=== PATIENT | female | born 1995 | race Caucasian/White ===

== ENCOUNTER 2018-11-28 18:33 | Emergency (ER) | payer BC ==
[2018-11-28 19:20] VITALS: BP 121/62
--- NOTE | 2018-11-28 19:37 | ED ---
Throat Pain/Nasal Congestion - HPI Summary HPI Summary: 23 yr old female with sinus congestion, post nasal drip, sinus pain, coughing. Onset of symptoms 5 days ago. No SOB. No fever. She initially thought this was a cold but it has settled into her face in frontal area with pain. No other complaints. She has had prior sinusitis. - History of Current Complaint Chief Complaint: UCRespiratory Time Seen by Provider: 11/28/18 19:25 - Allergies/Home Medications Home Medications: Home Medications BuPROPion XL* [Bupropion XL*] 300 mg PO DAILY 11/28/18 [History Confirmed ] Norethindrone-E.estradiol-Iron [Junel Fe 1 mg-20 Mcg Tablet] 1 each PO DAILY [History Confirmed 11/28/18] PMH/Surg Hx/FS Hx/Imm Hx EENT History: Reports: Other - sinusitis Infectious Disease History: No Infectious Disease History: Denies: Traveled Outside the [place] in Last 30 Days - Family History Known Family History: Positive: None - Social History Occupation: Student Alcohol Use: Rare Substance Use Type: Reports: None Smoking Status (MU): Never Smoked Tobacco Review of Systems Constitutional: Negative Positive: Other - sinusitis All Other Systems Reviewed And Are Negative: Yes Physical Exam Triage Information Reviewed: Yes Vital Signs On Initial Exam: Initial Vitals Temp Pulse Resp BP Pulse Ox 98.8 F 102 16 121/62 100 11/28/18 19:17 11/28/18 19:17 11/28/18 19:17 11/28/18 19:17 11/28/18 19:17 Vital Signs Reviewed: Yes Appearance: Positive: Well-Appearing, No Pain Distress Skin: Positive: Warm, Skin Color Reflects Adequate Perfusion Head/Face: Positive: Normal Head/Face Inspection Eyes: Positive: EOMI ENT: Positive: Pharynx normal, Nasal congestion, Nasal drainage, TMs normal, Sinus tenderness Neck: Positive: Nontender Respiratory/Lung Sounds: Positive: Clear to Auscultation, Breath Sounds Present Cardiovascular: Positive: RRR. Negative: Murmur Abdomen Description: Negative: Distended Musculoskeletal: Positive: Strength/ROM Intact Neurological: Positive: Sensory/Motor Intact, Alert, Oriented to Person Place, Time, CN Intact II-III Psychiatric: Positive: Normal Diagnostics - Vital Signs Vital Signs Temp Pulse Resp BP Pulse Ox 11/28/18 19:17 98.8 F 102 16 121/62 100 - Laboratory Lab Statement: Any lab studies that have been ordered have been reviewed, and results considered in the medical decision making process. EENT Course/Dx - Course Course Of Treatment: 23 yr old with sinusitis. Rx Biaxin. - Diagnoses Provider Diagnoses: Sinusitis Discharge - Sign-Out/Discharge Documenting (check all that apply): Patient Departure All imaging exams completed and their final reports reviewed: No Studies - Discharge Plan Condition: Good Disposition: HOME Prescriptions: Clarithromycin TAB* [Biaxin 500 MG TAB*] 500 mg PO BID #20 tab Patient Education Materials: Sinusitis (ED) Referrals: [facility] [Outside] - 2 Days No Primary Care Phys,[facility] [Primary Care Provider] - - Billing Disposition and Condition Condition: GOOD Disposition: Home
== END 2018-11-28 19:38 | disposition home or self-care (01) ==
LOC: UCCORT 18:33
DX: J32.9 Chronic sinusitis, unspecified (principal)
CPT/HCPCS: 99202; G0463